=== PATIENT | female | born 1950 | race Caucasian/White ===

== ENCOUNTER 2025-01-01 12:23 | Outpatient (CLI) | payer MEDICARE, SELFPAY ==
--- OUTSIDE RECORDS SUMMARY | 2019-12-25 10:55 | XMS_ITS | Encounter Summary ---
Author Organization [facility] Address [address] [place] [address] Care Team Providers Care Clip Loading Machine Feeder Name Role Phone Sahra Jalloh APRN Primary Care Provider Reason for Referral * Diagnostic Imaging (Routine) - Closed Specialty Diagnoses / Procedures Referred By Contac t Referred To Contact Obstetrics and Gynecology Diagnoses Screening for osteoporosis Procedures DEXA Bone Density Axial Lionel Milan MD [address] [facility] [address] [place], [place] [address] Phone: tel: fax: [facility] OBGYN [address] [place] [address] Phone: tel:[phone] fax:[phone] Referral ID Status Reason Start Date Expiration Date Visits Re quested Visits Authorized [id number] Closed 12/17/2019 12/16/2020 1 1 Reason for Visit * Diagnostic Imaging (Routine) - Closed Specialty Diagnoses / Procedures Referred By Contac t Referred To Contact Obstetrics and Gynecology Diagnoses Screening for osteoporosis Procedures DEXA Bone Density Axial Lionel Milan MD [address] [facility] [address] [place] [address] Phone: tel: fax: [facility] OBGYN [address] [place] [address] Phone: tel:[phone] fax:[phone] Referral ID Status Reason Start Date Expiration Date Visits Re quested Visits Authorized [id number] Closed 12/17/2019 12/16/2020 1 1 Encounter Details Date Type Department Care Team (Latest Contact Info) Description 12/25/2019 10:55 AM EDT Hospital Encounter [facility] [place] [address] Screening for osteoporosis Social History [...] osteoporosis documented in this encounter Care Teams Clip Loading Machine Feeder Relationship Specialty Start Date End Date Sahra Jalloh APRN [address] [place] [address] PCP - General Family Medicine 12/28/17 documented as of this encounter
[2025-01-01 15:19] LABS: Hematocrit 42.9 % (37.0-47.0); Hemoglobin 14.1 g/dL (12.2-16.2); Immature Granulocytes % 0.2 %; Mean Corpuscular HGB Conc 32.9 g/dL (31.8-35.4); Mean Corpuscular Hemoglobin 31.8 pg (27.0-31.2); Mean Corpuscular Volume 96.8 fl (81-99); Nucleated Red Blood Cells % 0 %; Platelet Count 207 K/mm3 (142-424); Red Blood Count 4.43 M/mm3 (4.20-5.40); Red Cell Distribution Width-SD 45.1 fL; White Blood Count 5.4 K/mm3 (4.8-10.8)
[2025-01-01 15:40] LABS: Alanine Aminotransferase 16 U/L (12-78); Albumin Level 4.4 g/dl (3.5-5.0); Albumin/Globulin Ratio 1.8 (1.1-1.8); Alkaline Phosphatase 86 U/L (38-126); Anion Gap 14.5 mEq/L (5-15); Aspartate Amino Transferase 27 U/L (14-36); Bilirubin,Total 2.0 mg/dl (0.2-1.3); Blood Urea Nitrogen 21 mg/dl (7-17); Calcium 9.9 mg/dl (8.4-10.2); Carbon Dioxide 27 mmol/L (22.0-30.0); Chloride 103 mmol/L (98-107); Cholesterol 194 mg/dl (140-200); Creatinine,Serum 0.70 mg/dl (0.52-1.04); Estimated Glomerular Filt Rate 81 ml/min (>60); GFR (African American) 98 ML/MIN (>60); Globulin 2.5 g/dL (1.3-3.2); Glucose 85 mg/dl (74-100); HDL Cholesterol 76 mg/dl (40-60); Magnesium 2.0 mg/dl (1.6-2.3); Potassium 4.5 mmoL/L (3.5-5.1); Sodium 140 mmol/L (136-145); Total Protein,Serum 6.9 g/dl (6.3-8.2); Triglycerides 100 mg/dl (30-150)
[2025-01-01 15:57] LABS: Free T4 (Free Thyroxine) 1.32 ng/dl (0.78-2.19)
[2025-01-01 16:11] LABS: Thyroid Stimulating Hormone 1.09 uIU/mL (0.465-4.68)
--- OUTSIDE RECORDS SUMMARY | 2025-01-02 12:07 | XMS_ITS | Encounter Summary ---
Author Organization [facility] Address [address] [place] [address] Care Team Providers Care Architectural Design Professor Name Role Phone Ellis Camejo APRN Primary Care Provider Arielle Gomez INSIDE PHONE SALES Unavailable Unavail able Little Patel INSIDE PHONE SALES Unavailable Unavailab le Encounter Details Date Type Department Care Team (Late Contact Info) Description 09/30/2020 Outside Procedure External Location [address] [place] [address] Ellis Camejo DYNAMOMETER TESTER [address] [place] [address] Social History Tobacco Use Types Packs/Day Years Used Date Smoking Tobacco: Never Smokeless Tobacco: Never PHQ-2 Answer Date Recorded PHQ-2 Score 0 09/24/2020 Comments Unknown Sex and Gender Information Value Date Recorded Sex Assigned at Not on file Legal Sex Female 7:33 PM EDT Gender Identity Not on file Sexual Orientation Not on file COVID-19 Exposure Response Date Recorded In the last month, have you been in contact with someone who was confirmed or suspected to have Coronavirus / COVID-19? No / Unsure 09/24/2020 9:04 AM EDT documented as of this encounter Plan of Treatment Upcoming Encounters Date Type Department Care Team (Late Contact Info) Description 02/19/2025 11:00 AM EST Office Visit [facility] [address] [place] [address] Ellis Camejo DYNAMOMETER TESTER [address] [place] [address] documented as of this encounter Procedures Procedure Name Priority Date/Time Associated Diagnosis Comments MAMMOGRAPHY BREAST SCREENING TOMOSYNTHESIS BILATERAL 09/30/2020 9:29 AM EDT documented in this encounter Results * Mammography Breast Screening Tomosynthesis Bilateral (09/30/2020 9:29 AM EDT) Anatomical Region Laterality Modality Breast Bilateral Mammography 09/30/2020 9:29 AM EDT Narrative 09/30/2020 12:57 [place] [address] Name: ANDREINA CELIS Exam Date: 09/30/2020 : 1950 Age 70 Gender: F Physician: ELLIS CAMEJO Facility: [facility] Facility HSV: Outpatient Exam: FERNANDO SCRN MAMMO W/CAD BILAT MAMMOGRAM SCREENING BILATERAL WITH TOMOSYNTHESIS HISTORY: Routine screening exam COMPARISON: September 29, 2019 FINDINGS: Standard views were obtained. There are scattered fibroglandular densities. Benign-appearing calcifications are present. No mass, suspicious calcifications or architectural distortion is present. IMPRESSION: No mammographic evidence of malignancy. BI-RADS 2: Benign RECOMMENDATION: Annual mammography CAD was utilized during interpretation. The patient will be sent a letter from the mammography department with their mammography findings. Dictated By: Ramya Fox Transcribed By: Ramya Fox Transcribed On: 09/30/2020 12:45 PM Electronically signed by: Ramya Fox 09/30/2020 Thank you for referring TATAGERMAINEANDREINA to [facility]. Legally authenticated by POPE RAMYA Morrison 2020-09-30 12:45:31 Procedure Note Provider, Generic [facility] - 09/30/2020 [place] [address] Name: ANDREINA CELIS Exam Date: 09/30/2020 : 1950 Age 70 Gender: F Physician: ELLIS CAMEJO Facility: [facility] Facility HSV: Outpatient Exam: FERNANDO SCRN MAMMO W/CAD BILAT MAMMOGRAM SCREENING BILATERAL WITH TOMOSYNTHESIS HISTORY: Routine screening exam COMPARISON: September 29, 2019 FINDINGS: Standard views were obtained. There are scatteredfibroglandular densities. Benign-appearing calcifications are present. No mass,suspicious calcifications or architectural distortion is present. IMPRESSION: No mammographic evidence of malignancy. BI-RADS 2: Benign RECOMMENDATION: Annual mammography CAD was utilized during interpretation. The patient will be sent a letter from the mammography department withtheir mammography findings. Dictated By: Ramya Fox Transcribed By: Ramya Fox Transcribed On: 09/30/2020 12:45 PM Electronically signed by: Ramya Fox 09/30/2020 Thank you for referring ANDREINA CELIS to [facility]. Legally authenticated by POPE RAMYA Morrison 2020-09-30 12:45:31 us Ellis Camejo DYNAMOMETER TESTER IMG BI PROCEDURES Final Res ult documented in this encounter Visit Diagnoses Not on filedocumented in this encounter Additional Health Concerns Assessment Noted Time A fall risk assessment has been complete d for the patient 09/22/2020 9:51 AM EDT documented as of this encounter Care Teams Architectural Design Professor Relationship Specialty Start Date End Date Ellis Camejo APRN [address] [place] [address] PCP - General 08/13/20 Arielle Gomez LPN [employer] [place] [address] TCM Nurse 02/13/23 02/15/23 Little Patel LPN VALUE-BASED TRANSFORMATION PROGRAM TCM Nurse 02/11/24 02/13/24 documented as of this encounter
--- OUTSIDE RECORDS SUMMARY | 2025-01-02 12:07 | XMS_ITS | Encounter Summary ---
Author Organization [facility] Address [address] [place] [address] Care Team Providers Care Aircraft Cabin Cleaner Name Role Phone Ellis Camejo APRN Primary Care Provider Arielle Gomez INSURANCE RISK SURVEYOR Unavailable Unavail able Little Patel INSURANCE RISK SURVEYOR Unavailable Unavailab le Encounter Details Date Type Department Care Team (Late Contact Info) Description 10/19/2021 Outside Procedure External Location [address] [place] [address] Ellis Camejo [employer] [place] [address] Social History Tobacco Use Types Packs/Day Years Used Date Smoking Tobacco: Never Smokeless Tobacco: Never PHQ-2 Answer Date Recorded PHQ-2 Score 0 12/20/2020 Comments Unknown Sex and Gender Information Value Date Recorded Sex Assigned at Not on file Legal Sex Female 7:33 PM EDT Gender Identity Not on file Sexual Orientation Not on file COVID-19 Exposure Response Date Recorded In the last 10 days, have yo u been in contact with someone who was confirmed or suspected to have Coronavirus/COVID-19? No / Unsure 10/19/2021 9:13 AM EDT documented as of this encounter Plan of Treatment Upcoming Encounters Date Type Department Care Team (Late Contact Info) Description 02/19/2025 11:00 AM EST Office Visit [facility] [address] [place] [address] Ellis Camejo, SOLAR ENERGY SYSTEMS ENGINEER [address] [place] [address] documented as of this encounter Procedures Procedure Name Priority Date/Time Associated Diagnosis Comments MAMMOGRAPHY BREAST SCREENING TOMOSYNTHESIS BILATERAL 10/19/2021 8:41 AM EDT documented in this encounter Results * Mammography Breast Screening Tomosynthesis Bilateral (10/19/2021 8:41 AM EDT) Anatomical Region Laterality Modality Breast Bilateral Mammography 10/19/2021 8:41 AM EDT Narrative 10/19/2021 5:13 [place] [address] Name: TATA ANDREINA Exam Date: 10/19/2021 : 1950 Age 71 Gender: F Physician: ELLIS CAMEJO Facility: [facility] Facility HSV: Outpatient Exam: FERNANDO SCRN MAMMO W/CAD BILAT MAMMOGRAM SCREENING BILATERAL HISTORY: Routine screening exam COMPARISON: September 30, 2020 TECHNIQUE: Standard digital 2-D views with 3-D tomosynthesis DENSITY: There are scattered areas of fibroglandular density FINDINGS: Benign calcifications. Scattered areas of focal asymmetry are noted. No mass, suspicious calcifications or architectural distortion is present. IMPRESSION: No mammographic evidence of malignancy BI-RADS 2: Benign finding RECOMMENDATION: Annual mammography CAD was utilized during interpretation. The patient will be sent a letter from the mammography department with their mammography results. Dictated By: Helio Shields Transcribed By: Helio Guzmán Transcribed On: 10/19/2021 5:01 PM Electronically signed by: Helio Shields 10/19/2021 Thank you for referring ANDREINA CELIS to [facility]. Legally authenticated by TATUM DANIELSON 2021-10-19 17:01:48 Procedure Note Provider, Dayanara [facility] - 10/19/2021 [place] [address] Name: ANDREINA CELIS Exam Date: 10/19/2021 : 1950 Age 71 Gender: F Physician: ELLIS CAMEJO Facility: [facility] Facility HSV: Outpatient Exam: FERNANDO SCRN MAMMO W/CAD BILAT MAMMOGRAM SCREENING BILATERAL HISTORY: Routine screening exam COMPARISON: September 30, 2020 TECHNIQUE: Standard digital 2-D views with 3-D tomosynthesis DENSITY: There are scattered areas of fibroglandular density FINDINGS: Benign calcifications. Scattered areas of focal asymmetry arenoted. No mass, suspicious calcifications or architectural distortion ispresent. IMPRESSION: No mammographic evidence of malignancy BI-RADS 2: Benign finding RECOMMENDATION: Annual mammography CAD was utilized during interpretation. The patient will be sent a letter from the mammography department withtheir mammography results. Dictated By: Helio Shields Transcribed By: eHlio Guzmán Transcribed On: 10/19/2021 5:01 PM Electronically signed by: Helio Shields 10/19/2021 Thank you for referring ANDREINA CELIS to [facility]. Legally authenticated by TATUM DANIELSON 2021-10-19 17:01:48 Ellis Camejo APRN IMG BI PROCEDURES Final Res ult documented in this encounter Visit Diagnoses Not on filedocumented in this encounter Additional Health Concerns Assessment Noted Time A fall risk assessment has been complete d for the patient 10/19/2021 9:23 AM EDT documented as of this encounter Care Teams Aircraft Cabin Cleaner Relationship Specialty Start Date End Date Ellis Camejo APRN [address] [place] [address] PCP - General 08/13/20 Arielle Gomez LPN [employer] [place] [address] TCM Nurse 02/13/23 02/15/23 Little Patel LPN VALUE-BASED TRANSFORMATION PROGRAM TCM Nurse 02/11/24 02/13/24 documented as of this encounter
--- OUTSIDE RECORDS SUMMARY | 2025-01-02 12:07 | XMS_ITS | Encounter Summary ---
Author Organization Healthcare Address [address] [place] [id number] Care Team Providers Care Sizing Sponger Name Role Phone Sahra Jalloh APRN Primary Care Provider [phone] Reason for Visit * Reason Comments Med Refill Encounter Details Date Type Department Care Team (Late st Contact Info) Description 11/21/2024 Refill [facility] [address] [place] [address] Sahra Jalloh APRN [address] [place] [address] Essential (primary) hypertension Social History Tobacco Use Types Packs/Day Years Used Date Smoking Tobacco: Never Passive Smoke Exposure: Never Smokeless Tobacco: Never Humiliation, Afraid, Rape, and Kick questionnair e Answer Date Recorded Within the last year, have y ou been afraid of your partner or ex-partner? No 02/18/2024 Within the last year, have y ou been humiliated or emotionally abused in other ways by your partner or ex-partner? No Within the last year, have y ou been kicked, hit, slapped, or otherwise physically hurt by your partner or ex-partner? No 02/18/2024 Within the last year, have y ou been raped or forced to have any kind of sexual activity by your partner or ex-partner? No 02/18/2024 PHQ-2 Answer Date Recorded Patient Health Questionnaire-2 Score 0 02/18/2024 Hunger Vital Sign Answer Date Recorded Within the past 12 months, y ou worried that your food would run out before you got the money to buy more. Never true 02/18/20 24 Within the past 12 months, t he food you bought just didn't last and you didn't have money to get more. Never true 02/18/2024 PRAPARE - Transportation Answer Date Re corded In the past 12 months, has l ack of transportation kept you from medical appointments or from getting medications? No 01/31 In the past 12 months, has l ack of transportation kept you from meetings, work, or from getting things needed for daily living? No 02/18/2024 PHQ-9 Answer Date Recorded Patient Health Questionnaire-9 Score 0 02/18/2024 Housing Stability Vital Sign Answer Collins e Recorded In the last 12 months, was t here a time when you were not able to pay the mortgage or rent on time? No 02/18/2024 In the past 12 months, how m any times have you moved where you were living? 1 02/18/2024 At any time in the past 12 m ont, were you homeless or living in a residential (including now)? No 02/18/2024 Utilities Answer Date Recorded In the past 12 months has th e [employer], gas, oil, or water company threatened to shut off services in your home? No 02/18/2024 PHQ-2A Answer Date Recorded Patient Health Questionnaire-2 Score 0 02/15/2023 Comments Unknown Sex and Gender Information Value Date Recorded Sex Assigned at Not on file Legal Sex Female 7:33 PM EDT Gender Identity Not on file Sexual Orientation Not on file documented as of this encounter Miscellaneous Notes * Telephone Encounter - Homar Solis, PharmD - 11/24/2024 11:33 AM EDT 1 medication(s) has been approved per protocol. Please keep upcoming appointment for additional refills. Medications have been pended for refill atupcoming appointment. documented in this encounter Plan of Treatment Upcoming Encounters Date Type Department Care Team (Late st Contact Info) Description 02/19/2025 11:00 AM EST Office Visit [facility] [place] [address] Sahra Jalloh, MAINTENANCE APPRENTICE [address] [address] documented as of this encounter Visit Diagnoses Diagnosis Essential (primary) hypertension Unspecified essential hypertension Essential (primary) hypertension Unspecified essential hypertension documented in this encounter Additional Health Concerns Assessment Noted Time PHQ-9 Depression Total Score: 0 02/18/20 24 11:01 AM EST A fall risk assessment has been complete d for the patient 03/31/2024 11:49 AM EST A Body Mass Index follow-up plan has been documented for the patient 03/31/2024 11:58 AM EST documented as of this encounter Care Teams Sizing Sponger Relationship Specialty Start Date End Date Sahra Jalloh, MAINTENANCE APPRENTICE [address] [address] PCP - General 08/13/20 documented as of this encounter
--- OUTSIDE RECORDS SUMMARY | 2025-01-02 12:07 | XMS_ITS | Encounter Summary ---
Author Organization Healthcare Address [address] [place] [address] Care Team Providers Care National Van Truck Driver Name Role Phone Ellis Camejo APRN Primary Care Provider [phone] Arielle Gomez MEDICAL ADMINISTRATIVE Unavailable Unavail able Little Patel MEDICAL ADMINISTRATIVE Unavailable Unavailab le Encounter Details Date Type Department Care Team (Late Contact Info) Description 09/13/2020 Outside Procedure External Location [address] [place] [address] [place] [address] Social History Tobacco Use Types Packs/Day Years Used Date Smoking Tobacco: Never Smokeless Tobacco: Never Comments Unknown Sex and Gender Information Value Date Recorded Sex Assigned at Not on file Legal Sex Female 7:33 PM EDT Gender Identity Not on file Sexual Orientation Not on file COVID-19 Exposure Response Date Recorded In the last month, have you been in contact with someone who was confirmed or suspected to have Coronavirus / COVID-19? No / Unsure 09/13/2020 9:51 AM EDT documented as of this encounter Plan of Treatment Upcoming Encounters Date Type Department Care Team (Late st Contact Info) Description 02/19/2025 11:00 AM EST Office Visit [facility] [address] [place] [address] Ellis Camejo APRN [address] [place] [address] documented as of this encounter Procedures Procedure Name Priority Date/Time Associated Diagnosis Comments XR LUMBAR SPINE 2 OR 3 VIEWS 09/13/2020 11:10 AM EDT documented in this encounter Results * XR Lumbar Spine 2 or 3 Views (09/13/2020 11:10 AM EDT) Anatomical Region Laterality Modality Spine, L-spine Radiographic Kristyn ging 09/13/2020 11:1 0 AM EDT Narrative 09/13/2020 3:20 [place] [address] Name: ANDREINA CELIS Exam Date: 09/13/2020 : 1950 Age 70 Gender: F Physician: ELLIS CAMEJO Facility: [facility] Facility HSV: Outpatient Exam: LUMBAR SPINE 2 TO 3V LUMBAR SPINE, 3 views HISTORY: Back pain FINDINGS: There is significant dextrocurvature apex at L1-2. Degenerative endplate changes are most pronounced at the L1-2 level. No definite acute fracture is appreciated. Consider further evaluation with MRI. IMPRESSION: There is significant dextrocurvature apex at L1-2. Degenerative endplate changes are most pronounced at the L1-2 level. Consider further assessment with MRI. Dictated By: Ramya Fox Transcribed By: Ramya Fox Transcribed On: 09/13/2020 3:10 PM Electronically signed by: Ramya Fox 09/13/2020 Thank you for referring ANDREINA CELIS to [facility]. Legally authenticated by POPE RAMYA Morrison 2020-09-13 15:10:06 Procedure Note Provider, Generic Daniels - 09/13/2020 [place] [address] Name: ANDREINA CELIS Exam Date: 09/13/2020 : 1950 Age 70 Gender: F Physician: ELLIS CAMEJO Facility: [facility] Facility HSV: Outpatient Exam: LUMBAR SPINE 2 TO 3V LUMBAR SPINE, 3 views HISTORY: Back pain FINDINGS: There is significant dextrocurvature apex at L1-2.Degenerative endplate changes are most pronounced at the L1-2 level. No definiteacute fracture is appreciated. Consider further evaluation with MRI. IMPRESSION: There is significant dextrocurvature apex at L1-2.Degenerative endplate changes are most pronounced at the L1-2 level. Consider further assessment with MRI. Dictated By: Ramya Fox Transcribed By: Ramya Fox Transcribed On: 09/13/2020 3:10 PM Electronically signed by: Ramya Fox 09/13/2020 Thank you for referring ANDREINA CELIS to [facility]. Legally authenticated by POPE RAMYA Morrison 2020-09-13 15:10:06 Ellis Camejo APRN IMG XR PROCEDURES Final Res ult documented in this encounter Visit Diagnoses Not on filedocumented in this encounter Additional Health Concerns Assessment Noted Time A fall risk assessment has been complete d for the patient 09/13/2020 10:14 AM EDT documented as of this encounter Care Teams National Van Truck Driver Relationship Specialty Start Date End Date Ellis Camejo APRN [address] [place] [address] PCP - General 08/13/20 Arielle Gomez LPN [employer] [place] [address] TCM Nurse 02/13/23 02/15/23 Little Patel LPN VALUE-BASED TRANSFORMATION PROGRAM TCM Nurse 02/11/24 02/13/24 documented as of this encounter
--- OUTSIDE RECORDS SUMMARY | 2025-01-02 12:07 | XMS_ITS | Clinical Summary ---
[facility] [address] [place] [address] Care Team Providers Care Food Manager Name Role Phone Sahra Jalloh APRN Primary Care Provider Medications Sod Picosulfate-Mag Ox-Cit Acd 10-3.5-12 MG-GM -GM/160ML solutionIndicat ions:Screening for colon cancer Take 1 kit by mouth Take As Directed. Follow instructions that were mailed to your home. If you didn't receive these call [phone]. 2 bottle 8 Active Social History Tobacco Use Types Packs/Day Years [...] on file Sexual Orientation Not on file Plan of Treatment Health Maintenance Due Date Last Done Comments TDAP/TD VACCINES (1 - Tdap) 08/02/1967 COLOGUARD 1993 COLON CANCER SCREENING 5 YEA R SIGMOIDOSCOPY 1993 CT COLONOGRAPHY 1993 FECAL OCCULT BLOOD TEST 1993 FIT Testing (1 year) 1993 ZOSTER VACCINE (1 of 2) 1998 HEPATITIS C SCREENING 01/30/2018 DXA SCAN 12/24/2021 12/25/2019 RSV Vaccine - Adults (1 - 1- dose 75+ series) 08/02/2023 INFLUENZA VACCINE 10/31/2024 01/24/2019, , 01/12/2017, Additional history exists COVID-19 Vaccine (1 - 2023-2 5 season) 2024 ANNUAL WELLNESS VISIT 02/17/2025 02/18/2024, 023 COLONOSCOPY 02/15/2028 02/14/2018 COLORECTAL CANCER SCREENING 02/15/2028 Pneumococcal Vaccine 50+ Completed 11/22/2017, 10/31 Procedures Procedure Name Priority Date/Time Associated Diagnosis Comments DEXA BONE DENSITY AXIAL Routine 12/25/2019 11:13 AM EDT Screening for osteoporosis SCANNED - COLONOSCOPY 02/14/2018 from Last 3 Months or Most Recently Relevant to Health Maintenance Results * DEXA Bone Density Axial (12/25/2019 11:13 AM EDT) Anatomical Region Laterality Modality Wrist, Hip, L-spine N/A Bone Density Narrative 12/30/2019 12:37 PM EDT Bone Density Scan Findings Consistent with Osteopenia Would recommend Vitamin D and Weight Bearing Exercises Follow Up Repeat Study in 3-5 Years Lionel Milan MD us Lionel Milan MD IMG DXA ORDERABLES Final R esult * SCANNED - COLONOSCOPY (02/14/2018) Sahra Jalloh APRN CHART REVIEW TABS Fi nal Result from Last 3 Months or Most Recently Relevant to Health Maintenance Insurance Care Teams Food Manager Relationship Specialty Start Date End Date Sahra Jalloh APRN [address] [place] [address] PCP - General Family Medicine 12/28/17
--- OUTSIDE RECORDS SUMMARY | 2025-01-02 12:07 | XMS_ITS | Encounter Summary ---
Author Organization Healthcare Address [address] [place] [address] Care Team Providers Care Label Designer Name Role Phone Ellis Camejo APRN Primary Care Provider Little Patel LPN Unavailable Unavailab le Encounter Details Date Type Department Care Team (Late Contact Info) Description 11/07/2023 Outside Procedure External Location [address] [place] [address] Ellis Camejo, COMPUTER NETWORK [place] [address] Social History Tobacco Use Types Packs/Day Years Used Date Smoking Tobacco: Never Passive Smoke Exposure: Never Smokeless Tobacco: Never PHQ-2 Answer Date Recorded Patient Health Questionnaire-2 Score 0 03/29/2023 PHQ-2A Answer Date Recorded Patient Health Questionnaire-2 [...] Description 02/19/2025 11:00 AM EST Office Visit [facility] [address] [place] [address] Ellis Camejo APRN [address] [place] [address] documented as of this encounter Procedures Procedure Name Priority Date/Time Associated Diagnosis Comments MAMMOGRAPHY BREAST SCREENING TOMOSYNTHESIS BILATERAL 11/07/2023 9:23 AM EDT documented in this encounter Results * Mammography Breast Screening Tomosynthesis Bilateral (11/07/2023 9:23 AM EDT) Anatomical Region Laterality Modality Breast Bilateral Mammography 11/07/2023 9:23 AM EDT Narrative 11/07/2023 12:41 [place] [address] Name: ANDREINA CELIS Exam Date: 11/07/2023 : 1950 Age 73 years Gender: F Physician: ELLIS CAMEJO Facility: [facility] Facility HSV: Outpatient Exam: FERNANDO SCRN MAMMO W/CAD BILAT Exam: 3-D screening mammography including tomosynthesis and CAD (Computer Assisted Detection). Clinical indication: Asymptomatic screening exam Comparison: Exams to 2020 TECHNIQUE: Routine bilateral 2D screening mammogram with CC and MLO views obtained. 3-D tomosynthesis and Computer assisted detection were utilized for this exam. BREAST DENSITY: There are scattered fibroglandular densities FINDINGS: No suspicious mass, architectural distortion, or suspicious calcifications are present. IMPRESSION: No evidence of malignancy in either breast Recommendation: Annual screening mammography recommended in one year The results of this report will be communicated to the patient by letter in layman's terms. ACR BI-RADS: BI-RADS assessment category 1: Negative mammogram Mammography does not detect approximately 10-15% of breast cancers. A normal mammogram does not exclude breast cancer in a patient with palpable mass or abnormal findings on physical examination. These patients may need biopsies and when clinically indicated a biopsy should not be postponed because of a normal mammogram. If the patient has breast surgery or biopsy, FDA/SA Regulatory Guidelines mandate that this facility receive pathologic results for follow-up correlation. Electronically signed by:Forest Eugene MD11/07/2023 12:38 PM EDT Dictated By: Forest Eugene Transcribed By: Transcribed On: 11/07/2023 11:59 AM Electronically signed by: Forest Eugene 11/07/2023 Thank you for referring ANDREINA CELIS to [facility]. Legally authenticated by CHAR JOHNSON 2023-11-07 11:59:04 Procedure Note Provider, [facility] - 11/07/2023 [address] [place] [address] Name: ANDREINA CELIS Exam Date: 11/07/2023 : 1950 Age 73 years Gender: F Physician: ELLIS CAMEJO Facility: [facility] Facility HSV: Outpatient Exam: FERNANDO SCRN MAMMO W/CAD BILAT Exam: 3-D screening mammography including tomosynthesis and CAD(Computer Assisted Detection). Clinical indication: Asymptomatic screening exam Comparison: Exams to 2020 TECHNIQUE: Routine bilateral 2D screening mammogram with CC and MLOviews obtained. 3-D tomosynthesis and Computer assisted detection were utilizedfor this exam. BREAST DENSITY: There are scattered fibroglandular densities FINDINGS: No suspicious mass, architectural distortion, or suspicious calcifications are present. IMPRESSION: No evidence of malignancy in either breast Recommendation: Annual screening mammography recommended in one year The results of this report will be communicated to the patient by letterin layman's terms. ACR BI-RADS: BI-RADS assessment category 1: Negative mammogram Mammography does not detect approximately 10-15% of breast cancers. Anormal mammogram does not exclude breast cancer in a patient with palpable massor abnormal findings on physical examination. These patients may needbiopsies and when clinically indicated a biopsy should not be postponed because ofa normal mammogram. If the patient has breast surgery or biopsy, FDA/MQSA Regulatory Guidelines mandate that this facility receive pathologicresults for follow-up correlation. Electronically signed by:Forest Eugene MD11/07/2023 12:38 PM EDT Dictated By: Forest Eugene Transcribed By: Transcribed On: 11/07/2023 11:59 AM Electronically signed by: Forest Eugene 11/07/2023 Thank you for referring [facility] to [facility]. Legally authenticated by CHAR JOHNSON 2023-11-07 11:59:04 Ellis Camejo APRN IMG BI PROCEDURES Final Res ult documented in this encounter Visit Diagnoses Not on filedocumented in this encounter Additional Health Concerns Assessment Noted Time A fall risk assessment has been complete d for the patient 10/11/2023 10:01 AM EDT A Body Mass Index follow-up plan has been documented for the patient 10/11/2023 10:07 AM EDT documented as of this encounter Care Teams Label Designer Relationship Specialty Start Date End Date Ellis Camejo APRN [address] [place] [address] PCP - General 08/13/20 Little Patel LPN VALUE-BASED TRANSFORMATION PROGRAM TCM Nurse 02/11/24 02/13/24 documented as of this encounter
--- OUTSIDE RECORDS SUMMARY | 2025-01-02 12:07 | XMS_ITS | Encounter Summary ---
Author Organization Healthcare Address [address] [id number] Care Team Providers Care Hostess Host Name Role Phone Ellis Camejo APRN Primary Care Provider Arielle Gomez BURNER MACHINE OPERATOR Unavailable Unavail able Little Patel BURNER MACHINE OPERATOR Unavailable Unavailab le Encounter Details Date Type Department Care Team (Late Contact Info) Description 10/30/2022 Outside Procedure External Location [address] [place] [address] Ellis Cmaejo [place] [address] Social History Tobacco Use Types Packs/Day Years Used Date Smoking Tobacco: Never Smokeless Tobacco: Never PHQ-2 Answer Date Recorded PHQ-2 Score 0 07/17/2022 Comments Unknown Sex and Gender Information Value Date Recorded Sex Assigned at Not on file Legal Sex Female 7:33 PM EDT Gender Identity Not on file Sexual Orientation Not on file documented as of this encounter Plan of Treatment Upcoming Encounters Date Type Department [facility] Description 02/19/2025 11:00 AM EST Office Visit [facility] [address] [place] [address] Ellis Camejo, [place] [address] documented as of this encounter Procedures Procedure Name Priority Date/Time Associated Diagnosis Comments MAMMOGRAPHY BREAST SCREENING TOMOSYNTHESIS BILATERAL 10/30/2022 10:36 AM EDT documented in this encounter Results * Mammography Breast Screening Tomosynthesis Bilateral (10/30/2022 10:36 AM EDT) Anatomical Region Laterality Modality Breast Bilateral Mammography 10/30/2022 10:3 6 AM EDT Narrative 10/30/2022 2:10 [place] [address] Name: ANDREINA CELIS Exam Date: 10/30/2022 : 1950 Age 72 Gender: F Physician: ELLIS CAMEJO [facility] Facility HSV: Outpatient Exam: FERNANDO SCRN MAMMO W/CAD BILAT MAMMOGRAM SCREENING BILATERAL HISTORY: Routine screening exam COMPARISON: October 19, 2021 TECHNIQUE: Standard digital 2-D views with 3-D tomosynthesis DENSITY: There are scattered areas of fibroglandular density FINDINGS: Benign calcifications. Scattered areas of focal asymmetries are noted. No new suspicious mass, suspicious calcifications or architectural distortion is present. IMPRESSION: No mammographic evidence of malignancy BI-RADS 2: Benign finding RECOMMENDATION: Annual mammography CAD was utilized during interpretation. The patient will be sent a letter from the mammography department with their mammography results. Dictated By: Helio Shields Transcribed By: Helio Guzmán Transcribed On: 10/30/2022 1:57 PM Electronically signed by: Helio Shields 10/30/2022 Thank you for referring ANDREINA CELIS to [facility]. Legally authenticated by TATUM DANIELSON 2022-10-30 13:57:40 Procedure Note Provider, Generic Turner - 10/30/2022 [place] [address] Name: ANDREINA CELIS Exam Date: 10/30/2022 : 1950 Age 72 Gender: F Physician: ELLIS CAMEJO [facility]: [facility] Facility HSV: Outpatient Exam: FERNANDO SCRN MAMMO W/CAD BILAT MAMMOGRAM SCREENING BILATERAL HISTORY: Routine screening exam COMPARISON: October 19, 2021 TECHNIQUE: Standard digital 2-D views with 3-D tomosynthesis DENSITY: There are scattered areas of fibroglandular density FINDINGS: Benign calcifications. Scattered areas of focal asymmetriesare noted. No new suspicious mass, suspicious calcifications orarchitectural distortion is present. IMPRESSION: No mammographic evidence of malignancy BI-RADS 2: Benign finding RECOMMENDATION: Annual mammography CAD was utilized during interpretation. The patient will be sent a letter from the mammography department withtheir mammography results. Dictated By: Helio Shields Transcribed By: Helio Guzmán Transcribed On: 10/30/2022 1:57 PM Electronically signed by: Helio Shields 10/30/2022 Thank you for referring ANDREINA CELIS to [facility]. Legally authenticated by TATUM DANIELSON 2022-10-30 13:57:40 us Ellis Camejo FAMILY LIVING EDUCATOR IMG BI PROCEDURES Final Res ult documented in this encounter Visit Diagnoses Not on filedocumented in this encounter Additional Health Concerns Assessment Noted Time A fall risk assessment has been complete d for the patient 10/11/2022 10:02 AM EDT documented as of this encounter Care Teams Hostess Host Relationship Specialty Start Date End Date Ellis Camejo APRN [address] [place] [address] PCP - General 08/13/20 Arielle Gomez LPN VALUE-[place] [place] [address] TCM Nurse 02/13/23 02/15/23 Little Patel LPN VALUE-BASED TRANSFORMATION PROGRAM TCM Nurse 02/11/24 02/13/24 documented as of this encounter
--- OUTSIDE RECORDS SUMMARY | 2025-01-02 12:07 | XMS_ITS | Clinical Summary ---
Author Organization Healthcare Address [address] [place] [address] Care Team Providers Care Seed Laboratory Technician Name Role Phone Ellis Camejo APRN Primary Care Provider Allergies No known active allergies Medications timolol (Timoptic) 0.5 % ophthalmic solution Administer 1 drop into both eyes 1 (one) time each day. 07/16/19 21 Active latanoprost (Xalatan) 0.005 % ophthalmic solution 11/15/19 23 Active fluorouracil (Efudex) 5 % cream APPLY A THIN LAYER TO AFFECTED AREAS DIRECTED ON EDUCATIONAL HANDOUT PROVIDED TO YOU IN THE OFFICE 04/26/19 24 Active ketoconazole (NIZOral) 2 % cream APPLY TO UNDER BREASTS AND FOLDS TWICE DAILY 10/18/19 24 Active dorzolamide-timolo l (Cosopt) 2-0.5 % ophthalmic solution 12/21/19 24 Active atorvastatin (Lipitor) 10 MG tabletIndications: Mixed hyperlipidemia Take 1 tablet (10 mg) by mouth 1 (one) time each day. 30 tablet 5 02/18/20 24 Active alendronate (Fosamax) 70 MG tabletIndications: Age-related osteoporosis without current pathological fracture TAKE 1 TABLET EVERY 7 DAYS 12 tablet 3 09/02/19 25 Active losartan (Cozaar) 25 MG tabletIndications: Essential (primary) hypertension TAKE 1 TABLET ONE TIME DAILY 90 tablet 11/25/19 25 Active Active Problems Problem Noted Date Diagnosed Date Low back pain with sciatica 09/03/2019 Positive LOLA (antinuclear antibody) 11/30/2017 Allergic rhinitis 09/26/2017 Depression 06/27/2014 History of allergy 06/27/2014 Encounters Date Type Department Care Team Description 11/21/2024 Refill [facility] [address] [facility] Medicine [address] [place] [address] Ellis Camejo APRN Essential (primary) hypertension 10/20/2024 Telephone [facility] [address] [place] [address] Addie Jeffrey, PharmD from Last 3 Months Immunizations Immunization Administration Dates Next Due Influenza Vaccine, Quadrival ent, Adjuvanted 01/25/2021 Influenza, High-dose, Split Virus, Trivalent, Injectable, preservative free 02/18/2024 Influenza, Unspecified 01/24/2019,01/21/2018 Influenza, high-dose, quadrivalent 01/04,01/25/2022,01/15/2020,01/24,01/21/2018,01/12/2017 Influenza, injectable, quadr ivalent, preservative free 01/12/2017 Moderna COVID-19 Vaccine (Re d Cap) 12+ years 06/09/2020,05/12/2020 Pneumococcal Conjugate PCV 13 11/16/2016 Pneumococcal Polysaccharide PPV23 11/22/2017 Social History Tobacco Use Types Packs/Day Years Used Date Smoking Tobacco: Never Passive Smoke Exposure: Never Smokeless Tobacco: Never Tobacco Cessation:Counseling Given: Not Answered Humiliation, Afraid, Rape, and Kick questionnair e [...] any time in the past 12 m [facility], were you homeless or living in a custodial (including now)? No 02/18/2024 Utilities Answer Date Recorded In the past 12 months has th e [employer], gas, oil, or water company threatened to shut off services in your home? No 02/18/2024 PHQ-2A Answer Date Recorded Patient Health Questionnaire-2 Score 0 02/15/2023 Comments Unknown Sex and Gender Information Value Date Recorded Sex Assigned at Not on file Legal Sex Female 7:33 PM EDT Gender Identity Not on file Sexual Orientation Not on file Last Filed Vital Signs Vital Sign Reading Time Taken Comments Blood Pressure 138/80 02/18/2024 11:14 AM EST Pulse 77 03/31/2024 11:49 AM EST Temperature 36.7 C (98.1 F) 02/18/2024 11:00 AM EST Respiratory Rate 18 02/18/2024 11:00 AM EST Oxygen Saturation 96% 03/31/2024 11:49 AM EST Inhaled Oxygen Concentration - - Weight 55.9 kg (123 lb 4.8 oz) 02/18/2024 11:00 AM EST Height 165.1 cm (5' 5 ) 02/18/2024 11:00 AM EST Body Mass Index 20.52 02/18/2024 11:00 AM EST Plan of Treatment Upcoming Encounters Date Type Department Care Team (Late st Contact Info) Description 02/19/2025 11:00 AM EST Office Visit [facility] [address] [facility] Medicine [address] [address] Ellis Camejo, AYDEE [address] [address] Health Maintenance Due Date Last Done Comments [facility]-Hepatitis C Screening 1950 [facility]-Infant/Child/Adol SDOH Screenings 1950 [facility]-Bone Density Scan 12/24/2020 12/25/2019 [facility]-RSV Vaccine: 60+ Years or (1 - 1-dose 75+ series) 08/02/2023 [facility]- SDOH Screenings 08/17/2024 [facility]-Adult SDOH Screenings 08/17/2024 02/18/2024 [id number]-SVIZV-00 Vaccine ( season) 2024 03/23/2021, 06/09/2020, 05/12/2020 [facility]-Influenza Vaccine (#1) 12/01/202402/17, 01/04/2023, 01/25/2022, Additional history exists [facility]-Depression Screening 02/17/2025 024, 02/18/2024, 09/13/2020 [facility]-Medicare Annual Wellness (AWV) 02/17/2025 02/18/2024, 02/15/2023 [facility]-Zoster Vaccines (1 of 2) 03/31/2025 Postponed from 1998 (Patient Refused) [facility]-DTaP,Tdap,and Td Vaccines (1 - Tdap) 04/01/2025 Postponed from 08/02/1967 (Other Patient Reasons) [facility]-Pneumococcal Vaccine: 50+ Years Completed 11/22/2017, 11/16/2016 Colonoscopy Discontinued 02/14/2018 [facility]-Colorectal Cancer Screening Discontinued [facility]-Breast Cancer Screening Discontinued 10/2023, 10/30/2022, 10/19/2021, Additional history exists CT Colonography Discontinued FIT-DNA Discontinued FIT Discontinued FOBT Discontinued HPV Vaccines Aged Out No longer eligi ble based on patient's age to complete this topic Sigmoidoscopy Discontinued [facility]-HIB Vaccines Aged Out No longer e ligible based on patient's age to complete this topic UKY-Hepatitis A Vaccines Aged Out No longer eligible based on patient's age to complete this topic [facility]-IPV Vaccines Aged Out No longer e ligible based on patient's age to complete this topic [facility]-Rotavirus Vaccines Aged Out No lo nger eligible based on patient's age to complete this topic Procedures Procedure Name Priority Date/Time Associated Diagnosis Comments MAMMOGRAPHY BREAST SCREENING TOMOSYNTHESIS BILATERAL 11/07/2023 9:23 AM EDT COLONOSCOPY EXTERNAL RESULT 02/14/2018 from Last 3 Months or Most Recently Relevant to Health Maintenance Results * Mammography Breast Screening Tomosynthesis Bilateral (11/07/2023 9:23 AM EDT) Anatomical Region Laterality Modality Breast Bilateral Mammography 11/07/2023 9:23 AM EDT Narrative 11/07/2023 12:41 [place] [address] Name: ANDREINA CELIS Exam Date: 11/07/2023 : 1950 Age 73 years Gender: F Physician: ELLIS CAMEJO Facility: [facility] Facility HSV: Outpatient Exam: FERNANDO SCRN [...] signed by:Forest Eugene MD11/07/2023 12:38 PM EDT RP Dictated By: Forest Eugene Transcribed By: Transcribed On: 11/07/2023 11:59 AM Electronically signed by: Forest Eugene 11/07/2023 Thank you for referring ANDREINA CELIS to [facility]. Legally authenticated by CHAR JOHNSON 2023-11-07 11:59:04 Procedure Note Provider, [facility] - 11/07/2023 [place] [address] Name: ANDREINA CELIS Exam Date: 11/07/2023 : 1950 Age 73 years Gender: F Physician: ELLIS CAMEJO Facility: [facility] Facility HSV: Outpatient Exam: FERNANDO SCRN [...] signed by:Forest Eugene MD11/07/2023 12:38 PM EDT RP Dictated By: Forest Eugene Transcribed By: Transcribed On: 11/07/2023 11:59 AM Electronically signed by: Forest Eugene 11/07/2023 Thank you for referring ANDREINA CELIS to [facility]. Legally authenticated by CHAR JOHNSON 2023-11-07 11:59:04 Ellis Camejo APRN IMG BI PROCEDURES Final Res ult * COLONOSCOPY EXTERNAL RESULT (02/14/2018) Anatomical Region Laterality Modality Endoscopy Narrative 02/14/2018 Ordered by an unspecified provider. us External Provider GI PROCEDURE ORDERABLES Final Result from Last 3 Months or Most Recently Relevant to Health Maintenance Insurance MEDICARE Care Teams Seed Laboratory Technician Relationship Specialty Start Date End Date Ellis Camejo APRN [address] [place] [phone] PCP - General 08/13/20
== END 2025-01-01 23:59 ==
LOC: LAB.DROPOF 01-02 12:05
PROVIDERS: PCP Student in an Organized Health Care Education/Training Program; Visit Provider Student in an Organized Health Care Education/Training Program
DX: F41.9 Anxiety disorder, unspecified (principal); F03.90 Unspecified dementia, unspecified severity, without behavioral disturbance, psychotic disturbance, mood disturbance, and anxiety; R44.1 Visual hallucinations
CPT/HCPCS: 80053; 80061; 83735; 84439; 84443; 85025

== ENCOUNTER 2025-01-08 12:28 | Outpatient (CLI) | payer MEDICARE, SELFPAY ==
--- OUTSIDE RECORDS SUMMARY | 2019-12-25 10:55 | XMS_ITS | Encounter Summary ---
Author Organization [facility] Address [address] [place] [address] Care Team Providers Care Machine Maintenance Mechanic Name Role Phone Sahra Jalloh APRN Primary Care Provider Reason for Referral * Diagnostic Imaging (Routine) - Closed Specialty Diagnoses / Procedures Referred By Contac t Referred To Contact Obstetrics and Gynecology Diagnoses Screening for osteoporosis Procedures DEXA Bone Density Axial Lionel Milan MD [address] [facility] [address] [place], [place] [address] Phone: tel: fax: [facility] OBGYN [address] [place] [address] Phone: tel:[phone] fax: Referral ID Status Reason Start Date Expiration Date Visits Re quested Visits Authorized [id number] Closed 12/17/2019 12/16/2020 1 1 Reason for Visit * Diagnostic Imaging (Routine) - Closed Specialty Diagnoses / Procedures Referred By Contac t Referred To Contact Obstetrics and Gynecology Diagnoses Screening for osteoporosis Procedures DEXA Bone Density Axial Lionel Milan MD [address] [facility] [address] [place] [address] Phone: tel: fax: [facility] OBGYN [address] [place] [address] Phone: tel:[phone] fax:[phone] Referral ID Status Reason Start Date Expiration Date Visits Re quested Visits Authorized [id number] Closed 12/17/2019 12/16/2020 1 1 Encounter Details Date Type Department Care Team (Latest Contact Info) Description 12/25/2019 10:55 AM EDT Hospital Encounter [facility] [place] [address] Screening for osteoporosis Social History [...] osteoporosis documented in this encounter Care Teams Machine Maintenance Mechanic Relationship Specialty Start Date End Date Sahra Jalloh APRN [address] [place] [address] PCP - General Family Medicine 12/28/17 documented as of this encounter
[2025-01-08 19:04] LABS: Free T4 (Free Thyroxine) 1.24 ng/dl (0.78-2.19)
[2025-01-08 19:25] LABS: Thyroid Stimulating Hormone 1.53 uIU/mL (0.465-4.68)
[2025-01-08 19:44] LABS: Vitamin B12 193 pg/mL (239-931)
[2025-01-08 20:20] LABS: Folate 15.00 ng/mL
--- OUTSIDE RECORDS SUMMARY | 2025-01-09 02:48 | XMS_ITS | Encounter Summary ---
Author Organization Healthcare Address [address] [place] [address] Care Team Providers Care Inside Sales Advertising Executive Name Role Phone Ellis Camejo APRN Primary Care Provider Arielle Gomez DOUBLE NEEDLE OPERATOR Unavailable Unavail able Little Patel DOUBLE NEEDLE OPERATOR Unavailable Unavailab le Encounter Details Date Type Department Care Team ([facility] st Contact Info) Description 09/13/2020 Outside Procedure External Location [address] [place] [address] Ellis Camejo APRN [address] [place] [address] Social History Tobacco Use Types [...] AM EDT Narrative 09/13/2020 3:20 [place] [address] Name: ANDREINA CELIS Exam Date: 09/13/2020 : 1950 Age 70 Gender: F Physician: ELLIS CAMEJO Facility: [facility] Facility HSV: Outpatient Exam: LUMBAR SPINE 2 [...] Thank you for referring ANDREINA CELIS to [facility]. Legally authenticated by POPE RAMYA Morrison 2020-09-13 15:10:06 Procedure Note Provider, Generic [place] - 09/13/2020 [place] [address] Name: ANDREINA CELIS Exam Date: 09/13/2020 : 1950 Age 70 Gender: F Physician: ELLIS CAMEJO Facility: [facility] Facility HSV: Outpatient Exam: LUMBAR SPINE 2 [...] Ramya Fox 09/13/2020 Thank you for referring TATA [facility]REINA to [facility] Legally authenticated by POPE RAMYA Morrison 2020-09-13 15:10:06 us Ellis Camejo APRN IMG XR PROCEDURES Final Res ult documented in this encounter Visit Diagnoses Not on filedocumented in this encounter Additional Health Concerns Assessment Noted Time A fall risk assessment has been complete d for the patient 09/13/2020 10:14 AM EDT documented as of this encounter Care Teams Inside Sales Advertising Executive Relationship Specialty Start Date End Date Ellis Camejo APRN [address] [place] [address] PCP - General 08/13/20 Arielle Gomez LPN [employer] [place] [address] TCM Nurse 02/13/23 02/15/23 Little Patel LPN VALUE-BASED TRANSFORMATION PROGRAM TCM Nurse 02/11/24 02/13/24 documented as of this encounter
--- OUTSIDE RECORDS SUMMARY | 2025-01-09 02:48 | XMS_ITS | Encounter Summary ---
Author Organization Healthcare Address [address] [place] [address] Care Team Providers Care Client Support Representative Name Role Phone Ellis Camejo MANAGER OPERATIONS RESEARCH Primary Care Provider Arielle Gomez COUTIERIER Unavailable Unavail able Little Patel COUTIERIER Unavailable Unavailab le Encounter Details Date Type Department Care Team ([facility] st Contact Info) Description 09/30/2020 Outside Procedure External Location [address] [place] [address] Ellis Camejo APRN [address] [place] [address] Social History Tobacco Use Types [...] AM EDT Narrative 09/30/2020 12:57 [place] [address] Name: ANDREINA CELIS Exam Date: 09/30/2020 : 1950 Age 70 Gender: F Physician: ELLIS CAMEJO Facility: [facility] Facility HSV: Outpatient Exam: FERNANDO SCRN MAMMO [...] Thank you for referring ANDREINA CELIS to [facility]. Legally authenticated by POPE RAMYA Morrison 2020-09-30 12:45:31 Procedure Note Provider, [facility] [place] - 09/30/2020 [place] [address] Name: ANDREINA CELIS Exam Date: 09/30/2020 : 1950 Age 70 Gender: F Physician: ELLIS CAMEJO Facility: [facility] Facility HSV: Outpatient Exam: FERNANDO SCRN MAMMO [...] Thank you for referring ANDREINA CELIS to [facility]. Legally authenticated by POPE RAMYA Morrison 2020-09-30 12:45:31 us Ellis Camejo APRN IMG BI PROCEDURES Final Res ult documented in this encounter Visit Diagnoses Not on filedocumented in this encounter Additional Health Concerns Assessment Noted Time A fall risk assessment has been complete d for the patient 09/22/2020 9:51 AM EDT documented as of this encounter Care Teams Client Support Representative Relationship Specialty Start Date End Date Ellis Camejo APRN [address] [place] [phone] PCP - General 08/13/20 Arielle Gomez LPN VALUE[employer] [place] [address] TCM Nurse 02/13/23 02/15/23 Little Patel LPN VALUE-BASED TRANSFORMATION PROGRAM TCM Nurse 02/11/24 02/13/24 documented as of this encounter
--- OUTSIDE RECORDS SUMMARY | 2025-01-09 02:48 | XMS_ITS | Encounter Summary ---
Author Organization Healthcare Address [address] [place] [id number] Care Team Providers Care Data Analyst Etl Developer Name Role Phone Sahra Jalloh APRN Primary Care Provider [phone] Reason for Visit * Reason Comments Med Refill Encounter Details Date Type Department Care Team (Late st Contact Info) Description 11/21/2024 Refill [facility] [address] [place] [address] Sahra Jalloh APRN [address] [place] [place] [address] Essential (primary) hypertension Social History [...] any time in the past 12 m onths, were you homeless or living in a care home (including now)? No 02/18/2024 Utilities Answer Date Recorded In the past 12 months has th e [employer], gas, oil, or water company threatened to [...] documented in this encounter Plan of Treatment Not on file documented as of this encounter Visit Diagnoses Diagnosis Essential (primary) hypertension Unspecified essential hypertension documented in this encounter Additional Health Concerns Assessment Noted Time PHQ-9 Depression Total Score: 0 02/18/20 11:01 AM EST A fall risk assessment has been complete d for the patient 03/31/2024 11:49 AM EST A Body Mass Index follow-up plan has been documented for the patient 03/31/2024 11:58 AM EST documented as of this encounter Care Teams Data Analyst Etl Developer Relationship Specialty Start Date End Date Sahra Jalloh APRN [address] [place] [phone] PCP - General 08/13/20 documented as of this encounter
--- OUTSIDE RECORDS SUMMARY | 2025-01-09 02:48 | XMS_ITS | Encounter Summary ---
Author Organization Healthcare Address [address] [place] [address] Care Team Providers Care Quality Process Auditor Name Role Phone Ellis Camejo NURSE OB Primary Care Provider Little Patel LPN Unavailable Unavailab le Encounter Details Date Type Department Care Team (Late st Contact Info) Description 11/07/2023 Outside Procedure External Location [address] [place] [address] Ellis Camejo NURSE OB [address] [place] [address] Social History Tobacco Use Types [...] AM EDT Narrative 11/07/2023 12:41 PM EDT [address] [address] Name: ANDREINA CELIS Exam Date: 11/07/2023 : 1950 Age 73 years Gender: F Physician: ELLIS CAMEJO Facility: [facility] Facility HSV: Outpatient Exam: FERNANDO SCRN [...] for referring ANDREINA CELIS to [facility]. Legally authenticated by CHAR JOHNSON 2023-11-07 11:59:04 Procedure Note Provider, [facility] [place] - 11/07/20[address] [place] [address] Name: ANDREINA CELIS Exam Date: 11/07/2023 : 1950 Age 73 years Gender: F Physician: ELLIS CAMEJO Facility: [facility] Facility HSV: Outpatient Exam: FERNANDO SCRN [...] to [facility]. Legally authenticated by CHAR JOHNSON 2023-11-07 11:59:04 Ellis Caemjo NURSE OB IMG BI PROCEDURES Final Res ult documented in this encounter Visit Diagnoses Not on filedocumented in this encounter Additional Health Concerns Assessment Noted Time A fall risk assessment has been complete d for the patient 10/11/2023 10:01 AM EDT A Body Mass Index follow-up plan has been documented for the patient 10/11/2023 10:07 AM EDT documented as of this encounter Care Teams Quality Process Auditor Relationship Specialty Start Date End Date Ellis Camejo APRN [address] [place] [phone] PCP - General 08/13/20 Little Patel LPN VALUE-BASED TRANSFORMATION PROGRAM TCM Nurse 02/11/24 02/13/24 documented as of this encounter
--- OUTSIDE RECORDS SUMMARY | 2025-01-09 02:48 | XMS_ITS | Encounter Summary ---
Author Organization Healthcare Address [address] [place] [address] Care Team Providers Care Home Fire Alarm Installer Name Role Phone Ellis Camejo FIRE SPRINKLER FITTER Primary Care Provider [phone] Arielle Gomez ADJUNCT WRITING INSTRUCTOR Unavailable Unavail able Little Patel ADJUNCT WRITING INSTRUCTOR Unavailable Unavailab le Encounter Details Date Type Department Care Team ([facility] st Contact Info) Description 10/30/2022 Outside Procedure External Location [address] [place] [address] Ellis Camejo APRN [address] [place] [address] Social History Tobacco Use Types [...] AM EDT Narrative 10/30/2022 2:10 PM EDT [address] [address] Name: ANDREINA CELIS Exam Date: 10/30/2022 : 1950 Age 72 Gender: F Physician: ELLIS CAMEJO Facility: [facility] Facility HSV: Outpatient Exam: FERNANDO SCRN MAMMO [...] Thank you for referring ANDREINA CELIS to [facility]. Legally authenticated by TATUM DANIELSON 2022-10-30 13:57:40 Procedure Note Provider, Generic [place] - 10/30/2022 [place] [address] Name: ANDREINA CELIS Exam Date: 10/30/2022 : 1950 Age 72 Gender: F Physician: ELLIS CAMEJO Facility: [facility] Facility HSV: Outpatient Exam: FERNANDO SCRN MAMMO [...] Thank you for referring ANDREINA CELIS to [facility]. Legally authenticated by TATUM DANIELSON 2022-10-30 13:57:40 us Ellis Camejo FIRE SPRINKLER FITTER IMG BI PROCEDURES Final Res ult documented in this encounter Visit Diagnoses Not on filedocumented in this encounter Additional Health Concerns Assessment Noted Time A fall risk assessment has been complete d for the patient 10/11/2022 10:02 AM EDT documented as of this encounter Care Teams Home Fire Alarm Installer Relationship Specialty Start Date End Date Ellis Camejo APRN [address] [place] [phone] PCP - General 08/13/20 Arielle Gomez LPN VALUE-[employer] [place] [address] TCM Nurse 02/13/23 02/15/23 Little Patel LPN VALUE-BASED TRANSFORMATION PROGRAM TCM Nurse 02/11/24 02/13/24 documented as of this encounter
--- OUTSIDE RECORDS SUMMARY | 2025-01-09 02:48 | XMS_ITS | Clinical Summary ---
Author Organization [facility] Address [address] [place] [address] Care Team Providers Care Class C Driver Name Role Phone Sahra Jalloh APRN Primary Care Provider Medications Sod Picosulfate-Mag Ox-Cit Acd 10-3.5-12 MG-GM -GM/160ML solutionIndicat ions:Screening for colon cancer Take 1 kit by mouth Take As Directed. Follow instructions that were mailed to your home. If you didn't receive these call [phone]. 2 bottle 8 Active Social History Tobacco [...] Relevant to Health Maintenance Insurance Care Teams Class C Driver Relationship Specialty Start Date End Date Sahra Jalloh APRN [address] [place] [address] PCP - General Family Medicine 12/28/17
--- OUTSIDE RECORDS SUMMARY | 2025-01-09 02:48 | XMS_ITS | Clinical Summary ---
Author Organization Healthcare Address [address] [place] [address] Care Team Providers Care Water Jet Loom Fixer Name Role Phone Ellis Camejo APRN Primary Care Provider [phone] Allergies No known active allergies Medications timolol [...] Type Department Care Team Description 11/21/2024 Refill [facility] Medicine [address] [place] [address] Ellis Camejo APRN Essential (primary) hypertension 10/20/2024 Telephone [facility] [address] [place] [address] Addie Jeffrey, PharmD from Last [...] any time in the past 12 m [facility], were you homeless or living in a half-way (including now)? No 02/18/2024 Utilities Answer Date Recorded In the past 12 months has th e [facility], gas, oil, or water company threatened to [...] 02/18/2024 11:00 AM EST Plan of Treatment Health Maintenance Due Date Last Done Comments [facility]-Hepatitis C Screening 1950 [facility]-Infant/Child/Adol SDOH Screenings 1950 [facility]-Bone Density Scan 12/24/2020 12/25/2019 [facility]-RSV Vaccine: 60+ Years or (1 - 1-dose 75+ series) 08/02/2023 [facility]- SDOH Screenings 08/17/2024 [facility]-Adult SDOH Screenings 08/17/2024 02/18/2024 [id number] Vaccine ( season) 2024 03/23/2021, 06/09/2020, 05/12/2020 [...] AM EDT Narrative 11/07/2023 12:41 [place] [address] Name: ANDREINA CELIS Exam Date: 11/07/2023 : 1950 Age 73 years Gender: F Physician: ELLIS CAMEJO Facility: [facility] Facility HSV: Outpatient Exam: FERNANDO [...] [facility]. Legally authenticated by CHAR JOHNSON 2023-11-07 11:59:04 Procedure Note Provider, Generic [place] - 11/07/2023 [place] [address] Name: ANDREINA CELIS Exam Date: 11/07/2023 : 1950 Age 73 years Gender: F Physician: ELLIS CAMEJO Facility: [facility] Facility HSV: Outpatient Exam: FERNANDO [...] for follow-up correlation. Electronically signed by:Forest Eugene NC11/07/2023 12:38 PM EDT RP Dictated By: Forest Eugene Transcribed By: Transcribed On: 11/07/2023 11:59 AM Electronically signed by: Forest Eugene 11/07/2023 Thank you for referring ANDREINA CELIS to [facility]. Legally authenticated by CHAR JOHNSON 2023-11-07 11:59:04 us Ellis Camejo ENGINEERING SUPPLIES SALES IMG BI PROCEDURES Final Res ult * COLONOSCOPY EXTERNAL RESULT (02/14/2018) Anatomical Region Laterality Modality Endoscopy Narrative 02/14/2018 Ordered by an unspecified provider. us External Provider GI PROCEDURE ORDERABLES Final Result from Last 3 Months or Most Recently Relevant to Health Maintenance Insurance [employer] MEDICARE Care Teams Water Jet Loom Fixer Relationship Specialty Start Date End Date Ellis Camejo APRN [address] [place] [phone] PCP - General 08/13/20
--- OUTSIDE RECORDS SUMMARY | 2025-01-09 02:48 | XMS_ITS | Encounter Summary ---
Author Organization Healthcare Address [address] [place] [address] Care Team Providers Care Principal System Software Engineer Name Role Phone Ellis Camejo DIRECTOR CORPORATE SECURITY Primary Care Provider Arielle Gomez KEG VARNISHER Unavailable Unavail able Little Patel KEG VARNISHER Unavailable Unavailab le Encounter Details Date Type Department Care Team ([facility] st Contact Info) Description 10/19/2021 Outside Procedure External Location [address] [place] [address] Ellis Camejo APRN [address] [place] [address] Social History Tobacco Use Types [...] AM EDT Narrative 10/19/2021 5:13 [place] [address] Name: ANDREINA CELIS Exam Date: 10/19/2021 : 1950 Age 71 Gender: F Physician: ELLIS CAMEJO Facility: [facility] Facility HSV: Outpatient Exam: FERNANDO [...] you for referring ANDREINA CELIS to [facility]. Legally authenticated by TATUM DANIELSON 2021-10-19 17:01:48 Procedure Note Provider, Generic [place] - 10/19/2021 [place] [address] Name: ANDREINA CELIS Exam Date: 10/19/2021 : 1950 Age 71 Gender: F Physician: ELLIS CAMEJO Facility: [facility] Facility HSV: Outpatient Exam: FERNANDO [...] for referring ANDREINA CELIS to [facility]. Legally authenticated by TATUM DANIELSON 2021-10-19 17:01:48 Ellis Camejo APRN IMG BI PROCEDURES Final Res ult documented in this encounter Visit Diagnoses Not on filedocumented in this encounter Additional Health Concerns Assessment Noted Time A fall risk assessment has been complete d for the patient 10/19/2021 9:23 AM EDT documented as of this encounter Care Teams Principal System Software Engineer Relationship Specialty Start Date End Date Ellis Camejo, AYDEE [address] [place] [address] PCP - General 08/13/20 Arielle Gomez LPN VALUE-[place] [address] TCM Nurse 02/13/23 02/15/23 Little Patel LPN VALUE-BASED TRANSFORMATION PROGRAM TCM Nurse 02/11/24 02/13/24 documented as of this encounter
[2025-01-09 15:14] LABS: RPR W/RFX Titers Nonreactive (Nonreactive)
== END 2025-01-08 23:59 | disposition home or self-care (01) ==
LOC: LAB.DROPOF 01-09 02:47
PROVIDERS: PCP Student in an Organized Health Care Education/Training Program; Visit Provider Student in an Organized Health Care Education/Training Program
DX: R44.1 Visual hallucinations (principal)
CPT/HCPCS: 82607; 82746; 84439; 84443; 86592

== ENCOUNTER 2025-01-22 09:24 | Outpatient (CLI) | payer MEDICARE, SELFPAY ==
--- NOTE | 2025-01-22 09:45 | MR_ITS ---
FINAL REPORT TECHNIQUE: Multiplanar MR without contrast CLINICAL HISTORY: dementia with new onset visual hallucinations COMPARISON: None FINDINGS: Diffusion sequences show no signal abnormality to indicate acute infarct. Mild atrophy is present. There is moderate ventriculomegaly, increased out of proportion to the degree of atrophy. This may be secondary to normal pressure hydrocephalus. No mass, hemorrhage or edema is seen. Major vascular flow voids are intact. IMPRESSION: 1. No mass or acute infarct. 2. Atrophy and ventriculomegaly, which is increased out of proportion to the degree of atrophy. This may be secondary to normal pressure hydrocephalus. Reviewed, Interpreted and Dictated by Vaughn Patino MD Transcribed by Karla Rosa Authenticated and [facility]
== END 2025-01-22 23:59 | disposition home or self-care (01) ==
LOC: RAD 09:24
PROVIDERS: PCP Student in an Organized Health Care Education/Training Program; Visit Provider Student in an Organized Health Care Education/Training Program
DX: G31.9 Degenerative disease of nervous system, unspecified (principal); G93.89 Other specified disorders of brain; F03.92 Unspecified dementia, unspecified severity, with psychotic disturbance
CPT/HCPCS: 70551

== ENCOUNTER 2025-02-04 13:26 | Outpatient (CLI) | payer MEDICARE, SELFPAY ==
--- OUTSIDE RECORDS SUMMARY | 2019-12-25 09:55 | XMS_ITS | Encounter Summary ---
Author Organization [facility] Address [address] [place] [address] Care Team Providers Care Lithographers Printer Name Role Phone Sahra Jalloh APRN Primary Care Provider Reason for Referral * Diagnostic Imaging (Routine) - Closed Specialty Diagnoses / Procedures Referred By Contac t Referred To Contact Obstetrics and Gynecology Diagnoses Screening for osteoporosis Procedures DEXA Bone Density Axial Lionel Milan MD [address] [facility] [address] [place], [place] [id number] Phone: tel: fax: [facility] OBGYN [address] [place] [address] Phone: tel: fax:[phone] Referral ID Status Reason Start Date Expiration Date Visits Re quested Visits Authorized [id number] Closed 12/17/2019 12/16/2020 1 1 Reason for Visit * Diagnostic Imaging (Routine) - Closed Specialty Diagnoses / Procedures Referred By Contac t Referred To Contact Obstetrics and Gynecology Diagnoses Screening for osteoporosis Procedures DEXA Bone Density Axial Lionel Milan MD [address] [facility] [address] [place] [address] Phone: tel: fax: [facility] O[facility]YN [address] [place] [address] Phone: tel: fax:[phone] Referral ID Status Reason Start Date Expiration Date Visits Re quested Visits Authorized [id number] Closed 12/17/2019 12/16/2020 1 1 Encounter Details Date Type Department Care Team (Latest Contact Info) Description 12/25/2019 10:55 AM EDT Hospital Encounter [facility] [place] [address] Screening for osteoporosis Social History Tobacco Use Types Packs/Day Years Used Date Smoking Tobacco: Never Assessed Abuse Screen Answer Date Recorded Unsafe at Home or Work/School Not on file Feels Threatened by Someone? Not on file 12/2022 Does Anyone Keep You from Co ntacting Others or Doint Things Outside the Home? Not on file 01/09/2023 Physical Sign of Abuse Present Not on file 1 Housing Stability Answer Date Recorded Current Living Arrangements Not on file 12/31 Potentially Unsafe Housing Conditions Not on maria teresa e 01/09/2023 Family and Community Support Answer Collins e Recorded Help with Day-to-Day Activities Not on file 01/09/2023 Lonely or Isolated Not on file 01/09/2023 Employment Answer Date Recorded Do you want help finding or keeping work or a jamie b? Not on file 01/09/2023 Disabilities Answer Date Recorded Concentrating, Remembering, or Making Decisions Difficulty Not on file 01/09/2023 Doing Errands Independently Difficulty Not on fi le 01/09/2023 Education Answer Date Recorded Help with school or training? Not on file Preferred Language Not on file 01/09/2023 Comments Unknown Sex and Gender Information Value Date Recorded Sex Assigned at Not on file Legal Sex Female 1:35 PM EDT Gender Identity Not on file Sexual Orientation Not on file documented as of this encounter Plan of Treatment Not on file documented as of this encounter Procedures Procedure Name Priority Date/Time Associated Diagnosis Comments DEXA BONE DENSITY AXIAL Routine 12/25/2019 11:13 AM EDT Screening for osteoporosis documented in this encounter Results * DEXA Bone Density Axial (12/25/2019 11:13 AM EDT) Anatomical Region Laterality Modality Wrist, Hip, L-spine N/A Bone Density Narrative 12/30/2019 12:37 PM EDT Bone Density Scan Findings Consistent with Osteopenia Would recommend Vitamin D and Weight Bearing Exercises Follow Up Repeat Study in 3-5 Years Lionel Milan MD Lionel Milan MD IMG DXA ORDERABLES Final R esult documented in this encounter Visit Diagnoses Diagnosis Screening for osteoporosis Special screening for osteoporosis documented in this encounter Care Teams Lithographers Printer Relationship Specialty Start Date End Date Sahra Jalloh APRN [address] [place] [address] PCP - General Family Medicine 12/28/17 documented as of this encounter
--- OUTSIDE RECORDS SUMMARY | 2025-02-04 13:37 | XMS_ITS | Encounter Summary ---
Author Organization Healthcare Address [address] [place] [address] Care Team Providers Care Specialist Managers Name Role Phone Ellis Camejo APRN Primary Care Provider [phone] Arielle Gomez TORPEDO SPECIALIST Unavailable Unavail able Little Patel TORPEDO SPECIALIST Unavailable Unavailab le Encounter Details Date Type Department Care Team ([facility] st Contact Info) Description 09/13/2020 Outside Procedure External Location [address] [place] [address] Ellis Camejo APRN [address] [place] [address] Social History Tobacco Use Types [...] AM EDT Narrative 09/13/2020 3:20 [place] [address] Name: ANDREINA CELIS Exam Date: 09/13/2020 : 1950 Age 70 Gender: F Physician: ELLIS CAMEJO Facility: [facility] Facility HSV: Outpatient Exam: LUMBAR SPINE [...] to [facility]. Legally authenticated by POPE RAMYA Morrison 2020-09-13 15:10:06 Procedure Note Provider, Generic [place] - 09/13/2020 [place] [address] Name: ANDREINA CELIS Exam Date: 09/13/2020 : 1950 Age 70 Gender: F Physician: ELLIS CAMEJO Facility: [facility] Facility HSV: Outpatient Exam: LUMBAR SPINE [...] Thank you for referring TATA ANDREINA to [facility]. Legally authenticated by POPE RAMYA Morrison 2020-09-13 15:10:06 us Ellis Camejo APRN IMG XR PROCEDURES Final Res ult documented in this encounter Visit Diagnoses Not on filedocumented in this encounter Additional Health Concerns Assessment Noted Time A fall risk assessment has been complete d for the patient 09/13/2020 10:14 AM EDT documented as of this encounter Care Teams Specialist Managers Relationship Specialty Start Date End Date Ellis Camejo APRN [address] [place] [address] PCP - General 08/13/20 Arielle Gomez LPN VALUE-BASED [place] [address] TCM Nurse 02/13/23 02/15/23 Little Patel LPN VALUE-BASED TRANSFORMATION PROGRAM TCM Nurse 02/11/24 02/13/24 documented as of this encounter
--- OUTSIDE RECORDS SUMMARY | 2025-02-04 13:37 | XMS_ITS | Data Portability ---
Author Organization [facility] ADMIN Address [address] [place] [address] Assessment No assessment recorded. Plan of Treatment Reminders Order Date Submit Date Provider Last Modified By Organization Details Last Modified Time Details Appointments None recorded. Lab None recorded. Referral None recorded. Procedures None recorded. Surgeries None recorded. Imaging bone density 025 [facility]54 [facility] (Centralized Scheduling), [address] [facility], [place], [address], 5 08:12:19 Medication Orders None recorded. Patient TargetsNo targets recorded. Patient InstructionsNo instructions recorded. Reason for Referral None Reported. Results Created Date Observation Date Name Description Value Unit Range Abnormal Flag Note LastModifiedBy Organization Detail LastModifiedTime 11/13/1911/12/2024 fernando scrn mammo w/CAD bilat [facility] al [address] [place] [address] Phone: Fax: Name: CELISGERMAINE ELLA Exam Date: : [birth year] Age 74 years Gender : F Access ion: [id number] Physic amy: ILA DOMINGUEZ Facili ty: [facility] Facili ty HSV: Outpat ient Exam: FERNANDO SCRN MAMMO W/CAD BILAT Exam: 3-D screen ing mammog curt includ ing tomosy nthesi s and CAD (Compu ter Assist ed Detect ion). Clinic al indica tion: Asympt omatic screen ing exam Compar blanco: Exams to 2021 TECHNI QUE: Routin e bilate ral 2D screen ing mammog ele with CC and MLO views obtain ed. 3-D tomosy nthesi s and Comput er assist ed detect ion were utiliz ed for this exam. BREAST DENSIT Y: There are scatte red areas of fibrog landul ar densit y FINDIN GS: No suspic ious mass, sarahi ectura l distor tion, or suspic ious calcif icatio ns are presen t. IMPRES LUCIANO: No eviden ce of malign walt in either breast Recomm endati on: Annual screen ing mammog curt recomm ended in one year The result s of this report will be commun icated to the patien t by letter in layman 's terms. ACR BI-RAD S: BI-RAD S assess ment catego ry 1: Negati ve mammog ele Mammog curt does not detect approx imatel y 10-15% of breast cancer s. A normal mammog ele does not exclud e breast cancer in a patien t with palpab le mass or abnorm al findin gs on physic al examin ation. These patien ts may need biopsi es and when clinic ally indica lauren a biopsy should not be postpo wyatt becaus e of a normal mammog ele. If the patien t has breast surger y or biopsy , FDA/MQ SA Regula tory Guidel joseph mandat e that this facili ty receiv e pathol ogic result s for follow -up correl ation. Electr onical ly signed by: Germaine Eugene MD 2024 11:16 AM EDT RP Workst ation: [id number] Dictat ed By: Germaine Eugene Transc ribed By: Transc ribed On: 025 11:16 AM Electr onical ly signed by: Germaine Eugene 025 Thank you for [facility]err [facility] Legall y authen ticate d by CHAR DIOP 11-12 11:16: 50 CC'ed Logic: Orderi ng Provid er: COLLEEN Nowak CC Provid er: COLLEEN Nowak Attend ing Provid er: COLLEEN Nowak Admitt ing Provid er: COLLEEN Nowak [email or web address] [facility] - Physical Therapy [address], [place], [address], 11/12/2024 16:27:08 Result Notes None recorded. Medical Equipment None Reported. Allergies No known drug allergies Medications Name Sig Start Date Stop Date Status Note LastModified by Organization Details LastModified Time atorvastatin 10 mg tablet Take 1 tablet every day by oral route. active Not Available Not Available No t Available alendronate 70 mg tablet Take 1 tablet every week by oral route. active Not Available Not Available No t Available imiquimod 5 % topical cream packet APPLY A SMALL AMOUNT TO EACH INDIVIDUAL WART EVERY MORNING active Not Available Not Available No t Available losartan 25 mg tablet Take 1 tablet every day by oral route. active Not Available Not Available No t Available ketoconazole 2 % topical cream APPLY TO UNDER BREASTS AND FOLDS TWICE DAILY active Not Available Not Available No t Available Vitals Date Recorded Body height Body mass index (BMI) Body weight Body temperature Oxygen saturation Oxygen saturation in Arterial blood by Pulse oximetry Heart rate Systolic And Diastolic Provider Name and Address Organization Details Last Updated DateTime 5 156.21 cm 21.2 kg/m2 83719.5 3 g 97.1 [degF] 93 % 93 % 84 /min 116/90 mm[Hg] Georgia Drake [facility] [place] 5 15:05:10 Social History None recorded. Functional Status None recorded. Mental Status None recorded. Family History Nothing Reported. Medical History No medical history recorded. Gynecological HistoryNo gynecological history recorded. Obstetrics History GPAL:G 0 P 0 0 0 0 Past Encounters Encounter ID Performer Location Encounter Start Date Encounter Closed Date Diagnosis/Indication Diagnosis SNOMED-CT Code Diagnosis ICD10 Code Diagnosis IMO Codes Diagnosis Note [id number] Wilfred Dominguez MD [facility] - [address] [place] [address] 10/02/2024 14:46:58 10/02/2024 16:30:48 Postmenopausal osteoporosis 753280281 M81.0 2201 Currently on alendronat e 75 mg every Sun AM. We will continue an order bone density test Mixed hyperlipidemia 267 701264 E78.2 52539 Supposedly on atorvastat in 10 mg Essential hypertension 45059149 I10 84666 Supposedly on low dose losartan 25 mg Health Concerns Section Related Observation LastModified by Organization Detai ls LastModified Time None Recorded Concern Status LastModified by Organization Details LastModified Time None Recorded Advance Directives Directive None Recorded Payers Insurance Date Sequence Insurance Name Policy Number Policy [place] Covered Member ID [place] Member ID Guarantor Name 10/06/2024 1 [employer] (MEDICARE REPLACEMENT/ ADVANTAGE - PPO) Rufina Celis [id number] Rufina Celis Notes Date Note Type Note Provider Name and Address Organization Details Recorded Time text/html Pt presents to establish care. Has been seeing Sahra Jalloh. recently seen here by me. Patient has decided to switch to me as well.H/O Rheumatoid ArthritisCurrently being treated for glaucoma [facility] eye doc [facility] alendronate for osteopeniaMEDS: NKDAPSH: NONESoc Hx: , lives with , non-smoker, occ wine Wilfred Dominguez MD [address] , [place], [address], [facility] [place] 10/03/2024 23:59:58 OBGyn Episode No OBEpisode recorded.
--- OUTSIDE RECORDS SUMMARY | 2025-02-04 13:37 | XMS_ITS | Encounter Summary ---
Author Organization Healthcare Address [address] [place] [address] Care Team Providers Care Drawer In Plain Loom Name Role Phone Ellis Camejo MILL WASHER Primary Care Provider Arielle Gomez CLERICAL AND OFFICE SUPPORT WORKERS Unavailable Unavail able Little Patel CLERICAL AND OFFICE SUPPORT WORKERS Unavailable Unavailab le Encounter Details Date Type Department Care Team ([facility] st Contact Info) Description 09/30/2020 Outside Procedure External Location [address] [place] [address] Ellis Camejo APRN [address] [place] [address] Social History Tobacco Use Types [...] AM EDT Narrative 09/30/2020 12:57 [place] [address] Name: ANDREINA CELIS Exam Date: 09/30/2020 : 1950 Age 70 Gender: F Physician: ELLIS CAMEJO Facility: [facility] Facility HSV: Outpatient Exam: FERNANDO [...] to [facility]. Legally authenticated by POPE RAMYA Morrison 2020-09-30 12:45:31 Procedure Note Provider, [facility] [place] - 09/30/2020 [place] [address] Name: ANDREINA CELIS Exam Date: 09/30/2020 : 1950 Age 70 Gender: F Physician: ELLIS CAMEJO Facility: [facility] Facility HSV: Outpatient Exam: FERNANDO [...] Thank you for referring ANDREINA CELIS to [facility]. Legally authenticated by POPE RAMYA Morrison 2020-09-30 12:45:31 us Ellis Camejo APRN IMG BI PROCEDURES Final Res ult documented in this encounter Visit Diagnoses Not on filedocumented in this encounter Additional Health Concerns Assessment Noted Time A fall risk assessment has been complete d for the patient 09/22/2020 9:51 AM EDT documented as of this encounter Care Teams Drawer In Plain Loom Relationship Specialty Start Date End Date Ellis Camejo APRN [address] [place] [address] PCP - General 08/13/20 Arielle Gomez LPN VALUE-BASED [place] [address] TCM Nurse 02/13/23 02/15/23 Little Patel LPN VALUE-BASED TRANSFORMATION PROGRAM TCM Nurse 02/11/24 02/13/24 documented as of this encounter
--- OUTSIDE RECORDS SUMMARY | 2025-02-04 13:37 | XMS_ITS | Encounter Summary ---
Author Organization Healthcare Address [address] [place] [address] Care Team Providers Care [place] Program Coordinator Name Role Phone Ellis Camejo VIDEO PRODUCTION INTERN Primary Care Provider Little Patel LPN Unavailable Unavailab le Encounter Details Date Type Department Care Team (Late st Contact Info) Description 11/07/2023 Outside Procedure External Location [address] [place] [address] Ellis Camejo VIDEO PRODUCTION INTERN [address] [place] [address] Social History Tobacco Use Types [...] AM EDT Narrative 11/07/2023 12:41 PM EDT [address] [address] Name: ANDREINA CELIS Exam Date: 11/07/2023 : 1950 Age 73 years Gender: F Physician: ELLIS CAMEJO Facility: [facility] Facility HSV: Outpatient Exam: FERNANDO [...] Thank you for referring ANDREINA CELIS to [facility] Legally authenticated by CHAR JOHNSON 2023-11-07 11:59:04 Procedure Note Provider, [facility] [place] - 11/07/2023 [address] [place] [address] Name: ANDREINA CELIS Exam Date: 11/07/2023 : 1950 Age 73 years Gender: F Physician: ELLIS CAMEJO Facility: [facility] Facility HSV: Outpatient Exam: FERNANDO [...] Thank you for referring ANDREINA CELIS to [facility]. Legally authenticated by CHAR JOHNSON 2023-11-07 11:59:04 Ellis Camejo VIDEO PRODUCTION INTERN IMG BI PROCEDURES Final Res ult documented in this encounter Visit Diagnoses Not on filedocumented in this encounter Additional Health Concerns Assessment Noted Time A fall risk assessment has been complete d for the patient 10/11/2023 10:01 AM EDT A Body Mass Index follow-up plan has been documented for the patient 10/11/2023 10:07 AM EDT documented as of this encounter Care Teams [place] Program Coordinator Relationship Specialty Start Date End Date Ellis Camejo APRN [address] [place] [address] PCP - General 08/13/20 Little Patel LPN VALUE-BASED TRANSFORMATION PROGRAM TCM Nurse 02/11/24 02/13/24 documented as of this encounter
--- OUTSIDE RECORDS SUMMARY | 2025-02-04 13:37 | XMS_ITS | Clinical Summary ---
[facility] Address [address] [place] [address] Care Team Providers Care Surgical Instrument Repair Specialist Name Role Phone Sahra Jalloh APRN Primary Care Provider Medications Sod Picosulfate-Mag Ox-Cit Acd 10-3.5-12 MG-GM -GM/160ML solutionIndicat ions:Screening for colon cancer Take 1 kit by mouth Take As Directed. Follow instructions that were mailed to your home. If you didn't receive these call [phone]. 2 bottle 8 Active Social History Tobacco [...] Relevant to Health Maintenance Insurance Care Teams Surgical Instrument Repair Specialist Relationship Specialty Start Date End Date Sahra Jalloh APRN [address] [place] [address] PCP - General Family Medicine 12/28/17
--- OUTSIDE RECORDS SUMMARY | 2025-02-04 13:37 | XMS_ITS | Encounter Summary ---
Author Organization Healthcare Address [address] [place] [address] Care Team Providers Care Editor Sound Name Role Phone Ellis Camejo MINI SHIFTER Primary Care Provider Arielle Gomez AUTO DETAILER Unavailable Unavail able Little Patel AUTO DETAILER Unavailable Unavailab le Encounter Details Date Type Department Care Team ([facility] st Contact Info) Description 10/19/2021 Outside Procedure External Location [address] [place] [address] Ellis Camejo APRN [address] [place] [address] Social History Tobacco Use Types [...] AM EDT Narrative 10/19/2021 5:13 [place] [address] Name: ANRDEINA CELIS Exam Date: 10/19/2021 : 1950 Age [...] Thank you for referring ANDREINA CELIS to [facility]. Legally authenticated by TATUM DANIELSON 2021-10-19 17:01:48 Procedure Note Provider, Generic [place] - 10/19/2021 [place] [address] Name: ANDREINA CELIS Exam Date: 10/19/2021 : [...] Helio Shields 10/19/2021 Thank you for referring ANDRIENA CELIS to [facility]. Legally authenticated by TATUM DANIELSON 2021-10-19 17:01:48 Ellis Camejo APRN IMG BI PROCEDURES Final Res ult documented in this encounter Visit Diagnoses Not on filedocumented in this encounter Additional Health Concerns Assessment Noted Time A fall risk assessment has been complete d for the patient 10/19/2021 9:23 AM EDT documented as of this encounter Care Teams Editor Sound Relationship Specialty Start Date End Date Ellis Camejo, AYDEE [address] [place] [address] PCP - General 08/13/20 Arielle Gomez LPN VALUE-BASED [place] [address] TCM Nurse 02/13/23 02/15/23 Little Patel LPN VALUE-BASED TRANSFORMATION PROGRAM TCM Nurse 02/11/24 02/13/24 documented as of this encounter
--- OUTSIDE RECORDS SUMMARY | 2025-02-04 13:37 | XMS_ITS | Encounter Summary ---
Author Organization Healthcare Address [address] [place] [address] Care Team Providers Care Python Web Developer Name Role Phone Ellis Camejo AUTOMATIC VULCANIZING OPERATOR Primary Care Provider [phone] Arielle Gomez JOINERS SUPERVISOR Unavailable Unavail able Little Patel JOINERS SUPERVISOR Unavailable Unavailab le Encounter Details Date Type Department Care Team ([facility] st Contact Info) Description 10/30/2022 Outside Procedure External Location [address] [place] [address] Ellis Camejo APRN [address] [place] [address] Social History Tobacco Use Types [...] AM EDT Narrative 10/30/2022 2:10 PM EDT [address] [address] Name: ANDREINA CELIS Exam Date: 10/30/2022 : 1950 Age 72 Gender: F Physician: ELLIS CAMEJO Facility: [facility] Facility HSV: Outpatient Exam: FERNANDO [...] [facility]. Legally authenticated by TATUM DANIELSON 2022-10-30 13:57:40 Procedure Note Provider, Generic [place] - 10/30/2022 [place] [address] Name: ANDREINA CELIS Exam Date: 10/30/2022 : 1950 Age 72 Gender: F Physician: ELLIS CAMEJO Facility: [facility] Facility HSV: Outpatient Exam: FERNANDO [...] Thank you for referring ANDREINA CELIS to [facility]. Legally authenticated by TATUM DANIELSON 2022-10-30 13:57:40 us Ellis Camejo AUTOMATIC VULCANIZING OPERATOR IMG BI PROCEDURES Final Res ult documented in this encounter Visit Diagnoses Not on filedocumented in this encounter Additional Health Concerns Assessment Noted Time A fall risk assessment has been complete d for the patient 10/11/2022 10:02 AM EDT documented as of this encounter Care Teams Python Web Developer Relationship Specialty Start Date End Date Ellis Camejo APRN [address] [place] [address] PCP - General 08/13/20 Arielle Gomez LPN VALUE-BASED [place] [address] TCM Nurse 02/13/23 02/15/23 Little Patel LPN VALUE-BASED TRANSFORMATION PROGRAM TCM Nurse 02/11/24 02/13/24 documented as of this encounter
--- OUTSIDE RECORDS SUMMARY | 2025-02-04 13:37 | XMS_ITS | Clinical Summary ---
Author Organization Healthcare Address [address] [place] [address] Care Team Providers Care Water Purifier Name Role Phone Ellis Camejo APRN Primary [...] Type Department Care Team Description 11/21/2024 Refill [facility] [address] [place] [address] Ellis Camejo, AYDEE Essential (primary) hypertension from Last 3 Months Immunizations Immunization Administration [...] any time in the past 12 m [facility], were you homeless or living in a correction (including now)? No 02/18/2024 Utilities Answer Date Recorded In the past 12 months has th e electric, gas, oil, or water company threatened to [...] Last Done Comments [facility]-Hepatitis C Screening 1950 [facility]-/Child/Adol SDOH Screenings 1950 [facility]-Bone Density Scan 12/24/2020 12/25/2019 [facility]-RSV Vaccine: 60+ Years or (1 - 1-dose 75+ series) 08/02/2023 [facility]- SDOH Screenings 08/17/2024 [facility]-Adult SDOH Screenings 08/17/2024 02/18/2024 [facility]-MIJCC-28 Vaccine (4 - 2024- season) 2024 03/23/2021, 06/09/2020, 05/12/2020 [facility]-Influenza Vaccine [...] AM EDT Narrative 11/07/2023 12:41 [place] [address] Name: ANDREINA CELIS Exam Date: 11/07/2023 : 1950 Age 73 years Gender: F Physician: ELLIS CAMEJO Facility: [facility] Facility HSV: Outpatient Exam: FERNANDO SCRN [...] Thank you for referring ANDREINA CELIS to [facility]. Legally authenticated by CHAR JOHNSON 2023-11-07 11:59:04 Procedure Note Provider, [facility] [place] - 11/07/2023 [address] [place] [address] Name: ANDREINA CELIS Exam Date: 11/07/2023 : 1950 Age 73 years Gender: F Physician: ELLIS CAMEJO Facility: [facility] Facility HSV: Outpatient Exam: FERNANDO SCRN [...] Thank you for referring ANDREINA CELIS to [facility]. Legally authenticated by CHAR JOHNSON 2023-11-07 11:59:04 Ellis Camejo ACCOUNT RELATIONSHIP MANAGER IMG BI PROCEDURES Final Res ult * COLONOSCOPY EXTERNAL RESULT (02/14/2018) Anatomical Region Laterality Modality Endoscopy Narrative 02/14/2018 Ordered by an unspecified provider. us External Provider GI PROCEDURE ORDERABLES Final Result from Last 3 Months or Most Recently Relevant to Health Maintenance Insurance [facility] MEDICARE Care Teams Water Purifier Relationship Specialty Start Date End Date Ellis Camejo APRN [address] [place] [address] PCP - General 08/13/20
[2025-02-04 15:10] LABS: C-Reactive Protein 0.8 mg/L (0-4)
[2025-02-04 16:22] LABS: RPR W/RFX Titers Nonreactive (Nonreactive)
[2025-02-05 12:13] LABS: Antinuclear Antibodies (ANA) Negative (Negative)
== END 2025-02-04 23:59 | disposition home or self-care (01) ==
LOC: LAB 13:28
PROVIDERS: PCP Student in an Organized Health Care Education/Training Program; Visit Provider Specialist
DX: G93.40 Encephalopathy, unspecified (principal); I10 Essential (primary) hypertension; F03.92 Unspecified dementia, unspecified severity, with psychotic disturbance
CPT/HCPCS: 36415; 85651; 86038; 86140; 86592